=== PATIENT | male | born 1940 | race Caucasian/White ===

== ENCOUNTER 2020-08-08 02:27 | Emergency (ER) | payer MEDICARE ==
[2020-08-08 03:21] LABS: #Eosinphils 0.1 thou/uL (0.0-0.7); #Monocytes 0.5 thou/uL (0.11-0.59); #Neutrophils 7.4 thou/uL (1.40-6.50); %Basophils 0.5 % (0.0-1.0); %Eosinophils 0.8 % (0.0-10.0); %Lymphocytes 11.1 % (21.0-51.0); %Monocytes 5.8 % (0.0-10.0); %Neutrophils 81.8 % (42.0-75.0); Mean Corpuscular HGB CONC 31.6 g/dL (32.0-36.0); Mean Corpuscular Hemoglobin 27.3 pg (27.0-31.0); Mean Corpuscular Volume 86.4 fL (78.0-98.0); Mean Platelet Volume 6.9 fL (7.4-10.4); Platelet Count 188 thou/uL (130-400); RBC Distribution Width 14.6 % (11.5-14.5); Red Blood Cell (RBC) Count 4.78 mill/uL (4.70-6.10); White Blood Cell (WBC) Count 9.1 thou/uL (4.8-10.8)
[2020-08-08 03:34] LABS: ALT (SGPT) 18 U/L (8-55); AST (SGOT) 19 U/L (5-34); Albumin 3.6 g/dL (3.4-4.8); Alkaline Phosphatase 89 U/L (40-110); Anion Gap 18 mmol/L (10-20); BUN (Urea Nitrogen) 21 mg/dL (8.4-25.7); Bilirubin, Total 0.8 mg/dL (0.2-1.2); CK (CPK) 34 U/L (30-200); Calc. Creatinine Clearance 0 mL/min (70-130); Calcium 8.1 mg/dL (7.8-10.44); Carbon Dioxide 23 mmol/L (23-31); Chloride 105 mmol/L (98-107); Globulin 3.6 g/dL (2.4-3.5); Glucose 107 mg/dL (83-110); Potassium 3.9 mmol/L (3.5-5.1); Protein, Total 7.2 g/dL (5.8-8.1); Sodium 142 mmol/L (136-145)
--- NOTE | 2020-08-08 08:52 | RAD ---
PORTABLE CHEST: DATE: 08/08/2020. FINDINGS: An AP portable film at 0257 is compared with a 03/21/2018 study. The vasculature seems a little more prominent today than before. I cannot exclude some mild congestion. Cardiomegaly is about the same. The cardiac pacer remains in place. It may be slightly more confluent in the right base; however, the patient is turned slightly so I am not prepared to ensure there is an infiltrate here. This find ing should be compared with the presenting symptoms. IMPRESSION: Very slight prominence of vasculature. See discussion above. POS: HOME
== END 2020-08-08 05:05 | disposition home or self-care (01) ==
LOC: BURERS 02:27
DX: E11.649 Type 2 diabetes mellitus with hypoglycemia without coma (principal); I11.0 Hypertensive heart disease with heart failure; I50.9 Heart failure, unspecified; E78.00 Pure hypercholesterolemia, unspecified
CPT/HCPCS: 36415; 71045; 80053; 82550; 83880; 84484; 85025; 93005; 94760

== ENCOUNTER 2021-10-31 18:45 | Outpatient (CLI) | payer MEDICARE | END 2021-10-31 18:46 | disposition home or self-care (01) | LOC: BURRAD 18:45 | PROVIDERS: ATTEND Registered Nurse Community Health | DX: J06.9 Acute upper respiratory infection, unspecified (principal) | CPT/HCPCS: 71046 ==